=== PATIENT | male | born 1970 | race Caucasian/White ===

== ENCOUNTER → 2018-01-17 | Outpatient (CLI) | payer BC ==
[~2018-01-17] MED LIST: ALPR0.5T PO; ASCO10002 PO; CALC625T20 PO; IBUP-1060 PO; IOHEXOL 180 MG/ML 10 ML VIAL. ONE; LIDOCAINE 1% PF 2 ML VIAL. ONE; MULT1TAB52 PO; OMEG1CAP6 PO; cholesterol med; methylPREDNISolone ACETATE 40 MG/ML VIAL. ONE; methylPREDNISolone ACETATE 80 MG/ML VIAL. ONE
--- NOTE | 2018-01-17 23:38 | PAIN ---
DATE OF SERVICE: 01/17/2018 INITIAL CONSULTATION FOR PAIN CLINIC CHIEF COMPLAINT: Low back and right lower extremity pain. HISTORY OF PRESENT ILLNESS: This is a 48-year-old male who presents with history of pain, low back and right lower extremity for about 10 years, worse over the past 1 year but only he will be able to rest and get the pain to go down but has not been able to do that over the past year and especially the past 2-3 months. The patient reports pain is becoming worse in the low back radiating across the low back into the right lower extremity, posterior gluteus, posterior thigh, posterior calf, knee and into the foot and ankle on the right side with tingling in the feet on the right. The patient reports the pain is constant now, becoming more sharp, stabbing, throbbing, shooting with tingling and numbness in the foot radiating to the right leg and aching as well. The patient reports it is not a result of any specific injury or action he is aware of, but the patient is on his feet for most of his working day and has been lifting things over the years, which has exacerbated the pain as well. The patient reports it does not awaken him from sleep at night, feels much better with lying down or sitting, worse with standing and walking and bending. The patient reports it does not affect his bowel or bladder control or ability to walk, is not using any assistive devices to ambulate. The patient is undergoing chiropractic treatment and is currently doing that as well and this has helped to a moderate extent to decrease the pain. Also takes ibuprofen, which does help by about 30%-40%. The patient reports no loss of motor function but significant fatigability to the right leg. Rates his disability rate from 0-10, 10 being the worst, is a 6 with family home responsibilities, 7 with recreation, 2 with social activity, 8 with occupation, 5 with self care and 1 with life support activities. The patient did have MRI scan of the lumbar spine showing a large disk herniation at L5-S1 compressing the right S1 and right S2 nerve roots, resulting in spinal stenosis with mild spinal stenosis at L3-L4 and L4-L5 without compressing the traversing nerve roots. PAST MEDICAL HISTORY: Significant for only a colon resection in 2003 and an occasional marijuana use. Otherwise, the patient has been in good health. CURRENT MEDICATIONS: Include ibuprofen, Xanax, calcium, fiber tabs, fish oil, vitamin C, and multivitamin. ALLERGIES: The patient has no known drug allergies. FAMILY HISTORY: Significant for diabetes, hypertension and hypercholesterolemia. SOCIAL HISTORY: The patient does not smoke cigarettes but smokes marijuana occasionally, drinks about one alcoholic drink a month on average, does not use any other illegal, illicit or recreational drugs. The patient is single, lives locally in [place], [place]. The patient is also a sonar technician. REVIEW OF SYSTEMS: The patient's review of systems is positive for those items mentioned in history of present illness. All systems reviewed and otherwise negative. It is complete, full and well documented on the patient's chart. PHYSICAL EXAMINATION: VITAL SIGNS: Today, the patient's blood pressure is 140/99, pulse is 80, respirations 18 and temperature 98.5 degrees Fahrenheit. Height 5 feet 7 inches and weight is 179 pounds. GENERAL: The patient is awake, alert, oriented, appropriate and very pleasant demeanor. HEENT: Head shows normocephalic and atraumatic. Extraocular movements are intact and symmetrical. Oral cavity: Mucous membranes moist and pink. Dentition is intact. NECK: Shows anterior throat supple without palpable lymphadenopathy noted. Swallow reflex is symmetrical. CHEST: Shows normal on inspection. Breath sounds clear to auscultation bilaterally. HEART: Shows S1 and S2 clear. No murmurs auscultated. ABDOMEN: Soft, nontender and nondistended. No palpable organomegaly is noted. No rebound or guarding demonstrated. BACK: Shows spine grossly in the midline. Normal appearing thoracic kyphosis and lumbar lordotic curvature. Lumbar paraspinous muscle shows symmetrical on inspection, on palpation shows some moderate tenderness but only diffusely in the low lumbar distribution bilaterally, slightly more on the right than the left, without trigger points, without atrophy or hypertrophy. No tenderness over the spinous processes, sacrum or sacroiliac regions. The patient has good rotational motion of the lumbar spine, both laterally greater than 10 degrees, right and left as well as extension greater than 10 degrees, forward flexion 45 degrees without exacerbation of pain. EXTREMITIES: Lower extremities show deep tendon reflexes at 2+ in the patellar, 1+ tendo-calcaneus tendons. Motor exam is approximately 4 on a scale of 5 on the right with dorsiflexion, extension, quadriceps and hamstring flexion and 5/5 on the left. Peripheral pulses are 1+ posterior tibia. No peripheral edema is noted. Straight leg raise noted to be positive on the right at about 40 degrees, decreased with knee flexion, left side is negative. Gaenslen's and Denys's maneuvers are negative bilaterally. Peripheral pulses are 1+ posterior tibial. Lower extremities are warm and dry to touch, equal in color and appearance. The patient is able to stand, stand on his toes without difficulty or loss of balance, walks with normal appearing gait for short distance in the office, not using any assistive devices. The patient's skin shows warm and dry. Good turgor. No edema. No sores, rashes or bruising. IMPRESSION: 1. This is a 48-year-old male with a long history about 10 years or so low back and right lower extremity pain, now worse over the past few months in a radicular pattern. 2. MRI scan of the lumbar spine as noted. 3. Marijuana use. PLAN: Options were discussed with the patient including conservative medical management, physical therapy and interventional technique. He would like to proceed with interventional techniques. We discussed a lumbar epidural steroid injection using description as well as anatomical models to describe the procedure. Risks were again discussed including, but not limited to bleeding, infection, possibility of epidural hematoma, subsequent neurologic compromise, dural puncture, headaches, spinal cord and/or nerve damage, side effects of steroid medication and poor results regarding pain control. The patient understands and wished to proceed. The patient will return to the clinic in approximately 2 weeks for followup, was counseled as to return appointment, activity level and side effects to be aware of. DIAGNOSES: Lumbar radiculopathy with lumbar degenerative disk disease and lumbar herniated disk. PROCEDURE: Lumbar epidural steroid injection, translaminar approach, L5-S1 level using C-arm fluoroscopic guidance under sterile prep and drape using local anesthetic. MEDICATION INJECTED: A total of 120 mg Depo-Medrol plus 10 mL of preservative-free normal saline and 2 mL of Isovue for contrast. CONDITION AT DISCHARGE: Stable. The patient tolerated the procedure well and had no complications. JOHANNY ERICKSON MD DR: ROBYN/jovita JOB#: [id number] / [id number] TRENT Bonilla MD
== END | disposition home or self-care (01) ==
LOC: PNCL 07:43
PROVIDERS: ATTEND Anesthesiology
DX: M51.16 Intervertebral disc disorders with radiculopathy, lumbar region (principal); F12.90 Cannabis use, unspecified, uncomplicated; Z90.49 Acquired absence of other specified parts of digestive tract; Z79.899 Other long term (current) drug therapy; Z82.49 Family history of ischemic heart disease and other diseases of the circulatory system; Z83.3 Family history of diabetes mellitus; Z83.49 Family history of other endocrine, nutritional and metabolic diseases; Z72.89 Other problems related to lifestyle
CPT/HCPCS: 62323; J1030; J1040; Q9965

== ENCOUNTER → 2020-08-24 | Outpatient (CLI) | payer OTHER ==
[~2020-08-24] MED LIST changes: +ASCO100019 PO; -ASCO10002 PO; -LIDOCAINE 1% PF 2 ML VIAL. ONE; +MULT-445 PO; -MULT1TAB52 PO
--- NOTE | 2020-08-24 09:35 | PDOC4 ---
PROCEDURE Procedure Patient was consented for lumbar epidural steroid injection. Risks were dis cussed including but not limited to: Bleeding, infection, possibility of epidural hematoma and subsequent neurological compromise, dural puncture, headaches, spinal cord and/or nerve damage, side effects of steroid medication, and poor results regarding pain control. Patient understands and wished to proceed. Procedure is lumbar epidural steroid injection under local anesthetic using sterile prep and drape at the L5 S1 level using C-arm fluoroscopic guidance in both AP and lateral views medications injected is 120 mg Depo-Medrol +10mL preservative-free normal saline and 2 mL contrast- condition at discharge is stable patient tolerated procedure well had no complications. JOHANNY ERICKSON MD August 24, 2020 09:35
--- NOTE | 2020-08-24 09:35 | PDOC ---
Progress Note - Pain Clinic Date of Service: DOS: DATE: 08/24/20 TIME: 09:32 Diagnosis: Dx: Lumbar radiculopathy with lumbar degenerative disc disease and lumbar herniated disc History or Present Illness: HPI: 50-year-old male returns for follow-up status post lumbar epidural steroid injection last seen December 2017. Patient reports did very well with the injection with about 100% improvement for almost 2 and half years patient reports that the pain is beginning to return over the past month or 2 in the low back and the lower extremities mostly the posterior gluteus posterior thigh posterior calves shooting and radiating not the result of any specific injury or accident that he is aware of but has been getting worse with time and with activity patient reports is better with sitting or laying down generally does not awaken her from sleep at night worse with walking standing changing positions patient describes pain as aching and sharp tight at times can be severe and unbearable with extended standing walking or bending activities specially stooping and lifting patient reports his pain is a 10 on scale 10 is worse over the past week 8 on average 5 its least is a 5 today. Patient reports no new motor or sensory deficits no new bowel or bladder incontinence or other complaints. Patient have a new MRI scan which we discussed with him today showing some slight progression of the large disc herniation L5-S1. Physical Exam: VS: Blood pressure is 132/97 pulse 101 respirations 16 temperature 98.3 F height is 5 feet 7 inches weight is 180 pounds PE: PHYSICAL EXAMINATION: GENERAL: The patient is awake, alert, oriented, appropriate, very pleasant demeanor HEENT: Shows normocephalic, atraumatic. Extraocular movements are intact and symmetrical. Oral cavity: Mucous membranes moist and pink. Dentition is intact. NECK: Shows anterior throat supple without palpable lymphadenopathy noted. Swallow reflex symmetrical. CHEST: Shows normal on inspection. Breath sounds are clear bilaterally, no rales rhonchi or wheezes auscultated. HEART: Shows S1, S2 clear. No murmurs auscultated. ABDOMEN: Soft, nontender, nondistended, obese. No palpable organomegaly is noted. No rebound or guarding demonstrated. BACK: Shows spine grossly in the midline. Normal-appearing cervical lordotic curvature. There is slightly increased thoracic kyphosis, some flattening of the lumbar lordotic curvature. Lumbar paraspinous muscles show symmetrical on inspection, on palpation shows some moderate tenderness diffusely throughout the upper, middle and lower distribution of the paraspinous muscles bilaterally and also into the lower thoracic paraspinous musculature, firm and tender, but without specific trigger points, without radiation of pain. The patient has g ood rotational motion of the lumbar spine, both laterally as well as extension and flexion without significant difficulty. No tenderness over the spinous processes, sacrum or sacroiliac regions. EXTREMITIES: Lower extremities show deep tendon reflexes 2+ in the patellar and tendo calcaneus tendons. Motor exam is 4 on a scale of 5 with right dorsiflexion, extension, quadriceps and hamstring flexion and 5/5 on the left. Peripheral pulses are 1+ posterior tibial. No peripheral edema is noted bilaterally. Lower extremities are warm and dry to touch, equal in color and appearance. SKIN: Shows warm and dry, good turgor. No edema. No sores, rashes or bruising throughout. Procedure: Procedure: Options were discussed with the patient. Patient's old chart was reviewed his his current medication regimen updated current review of systems updated today as well. We will proceed with a first in the series lumbar epidural steroid injection stable fluoroscopic guidance. Risks were discussed including but not limited to: Bleeding, infection, possibility of epidural hematoma and subsequent neurological compromise, dural puncture, headaches, spinal cord and/or nerve damage, side effects of steroid medication, and poor results regarding pain control. Patient understands and wished to proceed. Patient will return to clinic in approximate 2 weeks for follow-up was counseled as to return appointment activity level and side effects to be aware of. Medication Injected: Med Injected: Procedure is lumbar epidural steroid injection under local anesthetic using sterile prep and drape at the L5-S1 level using C-arm fluoroscopic guidance in both AP and lateral views medications injected is 120 mg Depo-Medrol +10mL p reservative-free normal saline and 2 mL contrast- condition at discharge is stable patient tolerated procedure well had no complications. Condition at Discharge: Condition at Discharge: Condition at discharge stable, patient already procedure well and had no complications. JOHANNY ERICKSON MD August 24, 2020 09:35
== END | disposition home or self-care (01) ==
LOC: PNCL 08:55
PROVIDERS: ATTEND Anesthesiology
DX: M51.16 Intervertebral disc disorders with radiculopathy, lumbar region (principal); Z79.899 Other long term (current) drug therapy
CPT/HCPCS: 62323; J1030; J1040; Q9965